=== PATIENT | female | born 1975 | race African-American/Black ===

== ENCOUNTER 2016-07-10 18:04 | Emergency (ER) | payer SELFPAY ==
--- NOTE | 2016-07-11 19:09 | ER ---
ADMIT: 07/10/2016 RM/LOC: ER [facility] MR#: [id number] [address] [id number] [place] [place] [address] Emergency Room Report SEX: F AGE: 41 : 1975 DATE: 07/10/2016 CHIEF COMPLAINT: Abdominal pain. HISTORY OF PRESENT ILLNESS: A 41-year-old black female, who presents with 3 days duration of suprapubic abdominal pain and dysuria. Rates the pain as a 10/10. Denies any fever, chills, nausea, vomiting, diarrhea. Does have some low back pain. States she has had some blood in her urine. PAST MEDICAL HISTORY: No. ALLERGIES: NO. COURSE IN THE EMERGENCY ROOM: PHYSICAL EXAMINATION: GENERAL: The patient was seen and examined. VITAL SIGNS: She is afebrile and nontoxic. Temp 97.5. ABDOMEN: She does have some suprapubic tenderness to palpation. No rebound or guarding. No CVA tenderness. LUNGS: No respiratory distress. SKIN: Warm and dry. EXTREMITIES: Nontender. No pedal edema. LABORATORY DATA: I did get a UA on her, significant for leukocyte esterase, 8 wbc's consistent with urinary tract infection. She was given her first dose of Bactrim prior to discharge. IMPRESSION: Acute cystitis. DISPOSITION: The patient was started on Bactrim DS 1 tab p.o. b.i.d. for 5 days. She should follow up with her primary care provider if she is not improving. Increase fluids as tolerated. Questions were sought and answered to the best of my ability to the patient's satisfaction. Discharged in stable condition. JEFF Cole / Austin Hernandez MD / jane JOB #: [id number] CC: Meng Nazario MD, Attending Physician Jacques Richardson MD, Family Physician
== END 2016-07-10 21:53 | disposition home or self-care (01) ==
LOC: ER 18:04
DX: N30.00 Acute cystitis without hematuria (principal)